=== PATIENT | male | born 1990 | race Caucasian/White ===

== ENCOUNTER 2020-05-04 04:22 | Emergency (ER) | payer BC, OTHER ==
[~2020-05-04] VITALS: Ht 180.3 cm; Wt 70.3 kg
[~2020-05-04 04:22] MED LIST: LISINOPRIL2.5 MG PO
[2020-05-04] MEDS ORDERED: TETANUS/DIPHTHERIA TOX ADULT 0.5 ML SYR IM ONE (04:30)
[2020-05-04] MEDS ORDERED: TETANUS/DIPHTHERIA TOX ADULT 0.5 ML SYR ONE (04:36)
--- NOTE | 2020-05-04 04:39 | Emergency Department Note ---
History of Present Illnes History of Present Illness Chief Complaint: General Medicine Complaints History of Present Illness This is a 29 year old male presents to the ed for a laceration that occured at 3pm yesterday. size is 0.75cm. Laceration occurred yesterday over 3 hours ago. states he was using a wrench and smashed finger between handrail and wrench. Historian: Patient Arrival Mode: Car Onset (how long ago): hour(s) (14) Location: right ring finger Quality: laceration Radiation: Reports non-radiation Severity: mild Onset quality: sudden Timing of current episode: constant Progression: unchanged Chronicity: new Context: Reports trauma/injury (as above) Relieving factors: none Exacerbating factors: none Associated symptoms: Reports denies other symptoms Past Medical/Family History Physician Review I have reviewed the patient's past medical and family history. Any updates have been documented here. Past Medical History Recent Fever: No Clinical Suspicion of Infectio: No New/Unexplained Change in Ment: No Social History Smoking Cessation: Current some day smoker Alcohol Use: Occasional Any Illegal Drug Use: No Other Last Tetanus: UTD Review of Systems Review of Systems Constitutional: Reports no symptoms EENTM: Reports no symptoms Cardiovascular: Reports no symptoms Respiratory: Reports no symptoms Gastrointestinal: Reports no symptoms Genitourinary: Reports no symptoms Musculoskeletal: Reports no symptoms Integumentary: Reports as per HPI Neurological: Reports no symptoms Psychological: Reports no symptoms Endocrine: Reports no symptoms Hematological/Lymphatic: Reports no symptoms Physical Exam Related Data Allergies: Coded Allergies: No Known Allergies (Unverified , 04/17/16) Triage Vital Signs Vital Signs Date Time Temp Pulse Resp B/P (MAP) Pulse Ox O2 Delivery O2 Flow Rate FiO2 05/04/20 04:28 99.0 86 20 147/106 98 Vital signs reviewed: Yes Physical Exam CONSTITUTIONAL Constitutional: Present well-developed, Present well-nourished HENT HENT: Present normocephalic, Present atraumatic, Present oropharynx clear/moist, Present nose normal HENT L/R: Present left ext ear normal, Present right ext ear normal EYES Eyes: Reports PERRL, Reports conjunctivae normal NECK Neck: Present ROM normal PULMONARY Pulmonary: Present effort normal, Present breath sounds normal CARDIOVASCULAR Cardiovascular: Present regular rhythm, Present heart sounds normal, Present capillary refill normal, Present normal rate GASTROINTESTINAL Abdominal: Present soft, Present nontender, Present bowel sounds normal GENITOURINARY Genitourinary: Present exam deferred SKIN 0.75 cm laceration to pad of right ring finger, no acitive bleeding, laceration is superficial Skin: Present warm, Present dry MUSCULOSKELETAL Musculoskeletal: Present ROM normal NEUROLOGICAL Neurological: Present alert, Present oriented x 3, Present no gross motor or sensory deficits PSYCHOLOGICAL Psychological: Present mood/affect normal, Present judgement normal Results Imaging Imaging results reviewed: Yes Impressions Procedure: [id number] DX/FINGER RIGHT Exam Date: 05/04/20 Exam Time: 0445 REPORT STATUS: Signed X-ray right fourth digit 3 views. HISTORY: Pain. COMPARISON: None available. FINDINGS: Tuft fracture of the fourth digit with associated soft tissue swelling. Joint spaces are maintained. IMPRESSION: Tuft fracture of the fourth digit. Signed by: Katlyn Ramires MD on 05/04/2020 5:01 AM Dictated By: KATLYN RAMIRES MD 0 Transcribed By: GREG on 05/04/20500 COPY TO: NELLY PAULINO MD~ Assessment & Plan Medical Decision Making MDM xray ordered to eval for fracture due to extent of time that passed between injury and presentation to er it is to late to suture the laceration due to increased risk of infection Assessment & Plan Final Impression: (1) Laceration of right ring finger (2) Open fracture of tuft of distal phalanx of finger Depart Disposition: HOME, SELF-CARE Last Vital Signs Date Time Temp Pulse Resp B/P (MAP) Pulse Ox O2 Delivery O2 Flow Rate FiO2 05/04/20 04:28 99.0 86 20 147/106 98 Home Meds Reported Medications Lisinopril (LISINOPRIL) 2.5 Mg Tablet, 5 MG PO DAILY, #30 TAB 04/17/16 Medications in the ED Tetanus/ Diphtheria Toxoids 0.5 ml ONCE ONCE IM ; Start 05/04/20 at 04:30; Stop 05/04/20 at 04:31; Status DC Tetanus/ Diphtheria Toxoids 0.5 ml STK-MED ONCE .ROUTE ; Start 05/04/20 at 04:36; Stop 05/04/20 at 04:29; Status DC NELLY PAULINO MD May 04, 2020 04:39
--- OUTSIDE RECORDS SUMMARY | 2020-05-04 04:54 | XMS REPORT | Clinical Summary ---
Author Author [facility] Organization [facility] Address Unknown Phone Unavailable Care Team Providers Care Aircraft Quality Control Inspector Name Role Phone Titus Alejandro MD PCP Allergies No Known Active Allergies Medications No known medications Active Problems No known active problems Encounters Care Team Description Date Type Specialty Gary Osborne MD Rupture of ulnar collateral ligament of right thumb, initial encounter (Primary Dx); Closed displaced fracture of neck of fifth metacarpal bone of right hand, initial encounter 03/22/2020 Office Visit Orthopedic Surgery Gary Osborne MD 03/22/2020 Hospital Radiology Encounter Gary Osborne MD 03/22/2020 Hospital Radiology Encounter 03/22/2020 Travel Mohini Johnson MA Pain of right hand (Primary Dx) 03/21/2020 Orders Only Orthopedic Surgery 03/09/2020 Travel after 05/04/2019 Social History Date Tobacco Use Types Packs/Day Years Used Light Tobacco Smoker Cigarettes, 0.25 10 Cigars Smokeless Tobacco: Snuff Current User Drinks/Week oz/Week Comments Alcohol Use 0 Glasses of wine 0 Cans of beer 0 Shots of liquor 5 Standard drinks or equivalent 5.0 ocassionally Yes Sex Assigned at Date Recorded Not on file Last Filed Vital Signs Reading Time Taken Comments Vital Sign - - Blood Pressure - - Pulse - - Temperature - - Respiratory Rate - - Oxygen Saturation - - Inhaled Oxygen Concentration 77.1 kg (170 lb) 03/22/2020 11:13 AM CDT Weight 180.3 cm (5' 11") 03/22/2020 11:13 AM CDT Height 23.71 03/22/2020 11:13 AM CDT Body Mass Index Plan of Treatment Health Maintenance Due Date Last Done Comments INFLUENZA VACCINE 01/15/2020 Procedures Comments Procedure Name Priority Date/Time Associated Diag nosis XR HAND 3+ VW RIGHT Routine 03/22/2020 Pain of ri ght hand 11:[address] UPPER EXT EXTERNAL Routine 03/07/2020 STUDY 10:13 AM CDT XR UPPER EXTREMITY Routine 03/01/2020 EXTERNAL STUDY 10:16 AM CDT after 05/04/2019 Results * XR Hand 3+ Vw Right (03/22/2020 11:20 AM CDT) Specimen Narrative Performed At [facility] Xrays: The x-rays were ordered and pers onally reviewed by me. 3 views of the right hand Reason for exam: Right hand pain Impression: Healed right small finger m etacarpal neck fracture and foreign bodies noted along the dorsal middle ph alanx of the index finger Performing Organization Address City/[facility]/ZIP Code P mikhail Number [facility] [address] [place] [address] * CT Upper Ext External Study (03/07/2020 10:13 AM CDT) Specimen Narrative Performed At This exam was not acquired at a [facility] facility an d has not been [facility] interpreted by a [facility] Provider. The exam was imported into our imaging system. Performing Organization Address [facility]/ZIP Code P mikhail Number [facility] [address] [place] [address] * XR Upper Extremity External Study (03/01/2020 10:16 AM CDT) Specimen Narrative Performed At This exam was not acquired at a [facility] facility an d has not been [facility] interpreted by a [facility] Provider. The exam was imported into our imaging system. Performing Organization Address [facility] Code P mikhail Number [facility] [id number] [id number] after 05/04/2019 Insurance Type Payer Benefit Subscriber ID Effective Phone Address Plan / Dates Group PPO BCBS BCBS [id number] [id number] CHOICE resent PPO/MANAV KERR PPO Advance Directives For more information, please contact: [phone] Patient Gold Beater Explanation Type Date Recorded Advance Directives, Living Will and Medical Power of Nutrition Services Associate
--- OUTSIDE RECORDS SUMMARY | 2020-05-04 04:54 | XMS REPORT | Continuity of Care Document ---
Author Author [facility] t Organization [facility] Address [address] [place] [address] Phone Unavailable Care Team Providers Care Communications Editor Name Role Phone Javon FAGAN, Barbi Qureshi PCP Dylon FAGAN, Calos Vega Attphys [phone] Mohini Johnson MA Attphys Unavailable Payers Payer Name Policy Type Policy Number Effective Date Expiration Date S ource BCBSBCBS CHOICE PPO/FEDERAL EMPL [id number] 2016-Pre sentPPO [id number] 2016 00:00:00 [facility] Problems This patient has no known problems. Allergies, Adverse Reactions, Alerts This patient has no known allergies or adverse reactions. Social History Social Habit Start Date Stop Date Quantity Comments Source History of tobacco use Cigarette Smoker [facility] Sex Assigned At [facility] Cigarettes smoked current (pack per day) - Reported 00:00:00 2020-03-22 00:00:00 [facility] Cigarette pack-years 2020-03-22 00:00:00 2020-03-22 00:00:00 [facility] Tobacco use and exposure 2020-03-22 00:00:00 2020-03-22 00:00:00 Curr ent user [facility] Alcohol intake 2020-03-22 00:00:00 2020-03-22 00:00:00 Current drinker of alcohol (finding) [facility] Alcohol Comment 2020-03-22 00:00:00 2020-03-22 00:00:00 ocassionally [facility] Smoking Status Start Date Stop Date Source Light tobacco smoker 2020-03-22 00:00:00 [facility] Medications This patient has no known medications. Vital Signs Vital Name Observation Time Observation Value Comments Source Body height 2020-03-22 11:13:00 180.3 cm [facility] Body weight 2020-03-22 11:13:00 77.111 kg [facility] BMI 2020-03-22 11:13:00 23.71 kg/m2 [facility] Procedures Procedure Date / Time Performed Performing Clinician Sour e XR HAND 3+ VW RIGHT 2020-03-22 11:20:[address] UPPER EXT EXTERNAL STUDY 2020-03-07 10:13:33 Gary Osborne XR UPPER EXTREMITY EXTERNAL STUDY 2020-03-01 10:16:31 Gary Osborne Plan of Care Planned Activity Planned Date Details Comments Source Future Scheduled Test 2020-01-15 00:00:00 INFLUENZA VACCINE [code = INFLUENZA VACCINE] [facility] Encounters Start Date/Time End Date/Time [facility] Source 2020-03-22 00:00:00 2020-03-22 00:00:00 [facility] [id number] [facility] 2020-03-22 00:00:00 2020-03-22 00:00:00 [facility]patient [facility] [id number] [facility] 2020-03-22 00:00:00 2020-03-22 00:00:00 [facility] [id number] [facility] 2020-03-22 00:00:00 2020-03-22 00:00:00 [facility] [id number] [facility] Results Test Description Test Time Test Comments Results Result Comments Source XR Upper Extremity External Study 2020-03-22 10:16:41 This exam was not acquired at a [facility] facility and has not been interpreted by a [facility] Provider. The exam was imported into our imaging system. Ramírez Hawkins CT Upper Ext External Study 2020-03-22 10:13:45 This exam was not acquired at a [facility] facility and has not been interpreted by a [facility] Provider. The exam was imported into our imaging system. [facility] d[facility]
--- NOTE | 2020-05-04 05:04 | Diagnostic Imaging Report ---
X-ray right fourth digit 3 views. HISTORY: Pain. COMPARISON: None available. FINDINGS: Tuft fracture of the fourth digit with associated soft tissue swelling. Joint spaces are maintained. IMPRESSION: Tuft fracture of the fourth digit. Signed by: Alfonzo Griffith MD on 05/04/2020 5:01 AM
== END 2020-05-04 05:20 | disposition home or self-care (01) ==
LOC: ER 04:51
DX: S62.634B Displaced fracture of distal phalanx of right ring finger, initial encounter for open fracture (principal); W23.1XXA Caught, crushed, jammed, or pinched between stationary objects, initial encounter; I10 Essential (primary) hypertension; F17.210 Nicotine dependence, cigarettes, uncomplicated
CPT/HCPCS: 90471; 90714; 99283